=== PATIENT | male | born 1960 | race Caucasian/White ===

== ENCOUNTER → 2017-12-28 | Outpatient (CLI) | payer OTHER ==
[2013-10-26 11:34] VITALS: BP 135/92
--- NOTE | 2017-12-28 16:16 | KCIC ---
EXAM: MRI right shoulder without IV contrast DATE: 12/28/2017 2:45 PM COMPARISON: None INDICATION: Right shoulder pain TECHNIQUE: Multiplanar, multisequence MR imaging of the right shoulder without IV contrast FINDINGS: No right glenohumeral joint effusion. Trace subacromial-subdeltoid bursal fluid likely bursitis. AC joint is congruent. Type II acromion. There is an interstitial tear of the supraspinatus tendon within the mid-posterior fibers of the supraspinatus tendon. There may be extension to the articular surface (series 5, image 11). There is also a partial-thickness articular sided tear of the anteriormost fibers of the supraspinatus measuring 6 mm in AP dimension (series 8 image 11), involving approximately 90% tendon thickness. There is mildly increased signal within the supraspinatus and infraspinatus muscle bellies consistent with mild tendinosis. Normal muscle signal and bulk without fatty atrophy The intra and extra-articular long head biceps tendon are normal in signal and morphology. The extra-articular biceps tendon is within the bicipital groove. Evaluation for labral tear limited on this nonarthrographic study. Within these constraints, no discrete labral tear is identified although heterogeneous signal is seen within the biceps tendon anchor. Bone marrow signal is normal. Negative findings of AVN or fracture. Survey of articular cartilage within normal limits. IMPRESSION: 1. There is a background of mild tendinosis of the supraspinatus and infraspinatus tendons. 2. Short segment high-grade partial-thickness tear of the anterior most fibers of the supra space tendon. 3. Interstitial tear within the mid-posterior fibers of the supraspinatus tendon with suspected extension to the articular surface. 4. Trace subacromial-subdeltoid bursal fluid likely bursitis. Electronically signed by: Daniel Dawson MD (12/28/2017 4:13 PM) [id number]
== END | disposition home or self-care (01) ==
LOC: KCIC MRI 14:17
PROVIDERS: ATTEND Family Medicine
DX: M75.81 Other shoulder lesions, right shoulder (principal); M75.101 Unspecified rotator cuff tear or rupture of right shoulder, not specified as traumatic; I25.2 Old myocardial infarction; E78.00 Pure hypercholesterolemia, unspecified
CPT/HCPCS: 73221